=== PATIENT | male | born 1965 | race Caucasian/White ===

== ENCOUNTER 2019-01-09 08:52 | Day surgery (SDC) | payer BC ==
[~2019-01-09 08:52] MED LIST: LIDOCAINE HCL 1% MPF 30 SOL ONE; PROPOFOL 500 MG/50 ML EMU IV ONE
[2019-01-09 09:09] VITALS: RESP 16
[2019-01-09 11:16] VITALS: BP 129/88; PULSE 65; TEMP 97.6; O2SAT 98
== END 2019-01-09 11:37 | disposition home or self-care (01) ==
LOC: SURG 08:52
PROVIDERS: ATTEND Surgery
DX: Z12.11 Encounter for screening for malignant neoplasm of colon (principal); Z86.010 Personal history of colon polyps; K57.32 Diverticulitis of large intestine without perforation or abscess without bleeding
CPT/HCPCS: J2001; J2704